=== PATIENT | female | born 1995 | race Native Hawaiian/Other Pacific Islander ===

== ENCOUNTER 2017-01-12 18:06 | Emergency (ER) | payer OTHER ==
[~2017-01-12] VITALS: Ht 154.9 cm; Wt 49.9 kg
[~2017-01-12 18:06] MED LIST: MEDR150I3 IM; XANAX XR1 MG OR
== END 2017-01-12 19:18 | disposition home health service (06) ==
LOC: ED 18:06
DX: N63 Unspecified lump in breast (principal); N60.11 Diffuse cystic mastopathy of right breast
CPT/HCPCS: 99282

== ENCOUNTER 2017-01-19 11:10 | Outpatient (CLI) | payer OTHER | END 2017-01-19 19:08 | disposition home or self-care (01) | LOC: US 11:10 | DX: N63 Unspecified lump in breast (principal) ==

== ENCOUNTER 2017-03-30 16:37 | Observation (INO) | payer OTHER ==
[~2017-03-30] VITALS: Ht 154.9 cm; Wt 52.2 kg
[2017-03-30 17:57] VITALS: BP 111/75; TEMP 98.7; Ht 154.9 cm; Wt 52.2 kg
[2017-03-30 17:58] LABS: PLATELET COUNT 178 K/uL (152-353); POTASSIUM 3.6 mmol/L (3.6-5.2); SODIUM 139 mmol/L (136-145)
[2017-03-30 20:00] VITALS: BP 102/62; TEMP 99.4
[2017-03-31] VITALS: BP 90/51; TEMP 99.4
[2017-03-31 04:00] VITALS: BP 117/60; TEMP 99.2
[2017-03-31 05:36] LABS: PLATELET COUNT 141 K/uL (152-353)
[2017-03-31 05:48] LABS: SODIUM 141 mmol/L (136-145)
[2017-03-31 08:00] VITALS: BP 98/50; TEMP 99.2
--- NOTE | 2017-03-31 08:30 | NUR ---
DR. DE LUNA HERE TO SEE PATIENT, DISCHARGE ORDERS AND INSTRUCTIONS RECEIVED.
--- NOTE | 2017-03-31 08:50 | NUR ---
REVIEWED ALL DISCHARGE INSTRUCTIONS AND PRESCRIPTIONS WITH PATIENT. IV REMOVED, BANDAID APPLIED. PATIENT READY FOR DISCHARGE, WAITING ON RIDE.
--- NOTE | 2017-03-31 09:02 | NUR ---
03/30/17 AT [id number]. DE LUNA CALLED TO CHECK ON PT AND GET CT RESULTS. CT RESULTS GIVEN. DR. DE LUNA STATES THAT PT CAN GO OUT TO SMOKE PRN. ALSO NEW ORDER FOR PT TO BE ON CLEAR LIQUID DIET UNTIL 0300 AND THEN PT IS TO BE NPO AGAIN UNTIL DR. DE LUNA ROUNDS/ASSESSES PT IN THE MORNING. T.O. R&V DR. DE LUNA/PARIS VILLA RN.
--- NOTE | 2017-03-31 09:20 | NUR ---
PATIENT ESCORTED TO HOSPITAL EXIT AND DISCHARGED HOME WITH MOTHER IN STABLE CONDITION.
== END 2017-03-31 09:20 | disposition home or self-care (01) ==
LOC: MED/SURG 16:37
PROVIDERS: Internal Medicine; Student in an Organized Health Care Education/Training Program; ADMIT Nurse Practitioner
DX: R10.31 Right lower quadrant pain (principal); R11.0 Nausea
CPT/HCPCS: 36415; 80053; 81000; 81025; 83735; 85027; 87040; 96365; 96366; 96367; 96374; 99220; G0378; G0379; J2175; Q9963

== ENCOUNTER 2017-05-29 17:20 | Outpatient (CLI) | payer OTHER ==
[2017-05-29 18:01] LABS: PLATELET COUNT 229 K/uL (152-353)
[2017-05-29 18:12] LABS: POTASSIUM 3.5 mmol/L (3.6-5.2); SODIUM 138 mmol/L (136-145)
== END 2017-05-29 18:20 | disposition home or self-care (01) ==
LOC: LABW 17:20
PROVIDERS: Nurse Practitioner Family
DX: R10.84 Generalized abdominal pain (principal); R19.7 Diarrhea, unspecified
CPT/HCPCS: 36415; 80053; 82150; 83690; 85027; 87015; 87045; 87205; 87324; 87328; 87329; 87449; 87899

== ENCOUNTER 2017-06-19 15:21 | Outpatient (CLI) | payer OTHER | END 2017-06-19 19:01 | disposition home or self-care (01) | LOC: LAB 15:21 | DX: R10.32 Left lower quadrant pain (principal) | CPT/HCPCS: 87324; 87449 ==

== ENCOUNTER 2019-10-17 16:01 | Emergency (ER) | payer OTHER ==
[~2019-10-17] VITALS: Ht 152.4 cm; Wt 58.1 kg
[2019-10-17 16:17] VITALS: BP 103/62; TEMP 98.2
[2019-10-17 17:18] LABS: POTASSIUM 3.9 mmol/L (3.6-5.2)
[2019-10-17 17:19] LABS: PLATELET COUNT 179 K/uL (152-353)
== END 2019-10-17 18:26 | disposition home or self-care (01) ==
LOC: ED 16:01
PROVIDERS: Hospitalist
DX: J06.9 Acute upper respiratory infection, unspecified (principal); J40 Bronchitis, not specified as acute or chronic; N30.90 Cystitis, unspecified without hematuria; F17.210 Nicotine dependence, cigarettes, uncomplicated
CPT/HCPCS: 80053; 81000; 81025; 82150; 83690; 85027; 87502; 87651; 96374; 96375; 99284; J2405

== ENCOUNTER 2020-10-20 07:33 | Emergency (ER) | payer OTHER ==
[~2020-10-20] VITALS: Ht 152.4 cm; Wt 64.4 kg
[2020-10-20 07:42] VITALS: TEMP 97.7
[2020-10-20 08:13] LABS: PLATELET COUNT 175 K/uL (152-353)
[2020-10-20 08:23] LABS: POTASSIUM 3.7 mmol/L (3.6-5.2)
[2020-10-20 09:15] VITALS: BP 110/70
== END 2020-10-20 09:16 | disposition home or self-care (01) ==
LOC: ED 07:33
PROVIDERS: Emergency Medicine Emergency Medical Services
DX: S60.222A Contusion of left hand, initial encounter (principal)
CPT/HCPCS: 80053; 81000; 81025; 85027; 99283

== ENCOUNTER 2021-08-13 16:22 | Emergency (ER) | payer OTHER ==
[~2021-08-13] VITALS: Ht 154.9 cm; Wt 59.0 kg
[2021-08-13 18:55] VITALS: BP 115/66; TEMP 98.2
== END 2021-08-13 18:55 | disposition home or self-care (01) ==
LOC: ED 16:22
DX: F41.1 Generalized anxiety disorder (principal); R06.4 Hyperventilation
CPT/HCPCS: 93005; 96372; 99283; J1200; J2930

== ENCOUNTER 2022-04-29 19:56 | Emergency (ER) | payer OTHER ==
[~2022-04-29] VITALS: Ht 154.9 cm; Wt 49.9 kg
[2022-04-29 20:53] LABS: PLATELET COUNT 96 K/uL (152-353)
[2022-04-29 20:55] LABS: POTASSIUM 3.6 mmol/L (3.6-5.2)
[2022-04-29 21:03] LABS: PARTIAL THROMBOPLASTIN TIME 26.5 SECONDS (24.5-33.6)
[2022-04-29] MEDS ORDERED: ONDA4TAB3 PO (23:15)
[2022-04-29 23:48] VITALS: BP 110/69; TEMP 97.5
== END 2022-04-29 23:48 | disposition home or self-care (01) ==
LOC: ED 19:56
PROVIDERS: Emergency Medicine
DX: U07.1 COVID-19 (principal)
CPT/HCPCS: 36415; 80053; 82550; 84484; 85027; 85379; 85610; 85730; 93005; 96360; 99284

== ENCOUNTER 2023-03-04 22:20 | Emergency (ER) | payer OTHER ==
[~2023-03-04] VITALS: Ht 154.9 cm; Wt 68.0 kg
[~2023-03-04 22:20] MED LIST changes: +ONDA4TAB3 PO
[2023-03-05] LABS: POTASSIUM 3.6 mmol/L (3.6-5.2)
[2023-03-05 00:01] LABS: PLATELET COUNT 187 K/uL (152-353)
[2023-03-05 00:50] VITALS: BP 103/53
== END 2023-03-05 00:50 | disposition home or self-care (01) ==
LOC: ED 22:20
PROVIDERS: Family Medicine
DX: R10.9 Unspecified abdominal pain (principal); R14.3 Flatulence; K21.9 Gastro-esophageal reflux disease without esophagitis; Z3A.10 10 weeks gestation of pregnancy; F17.210 Nicotine dependence, cigarettes, uncomplicated
CPT/HCPCS: 36415; 80053; 80307; 81002; 85027; 96360; 99284